=== PATIENT | male | born 1985 | race Caucasian/White ===

== ENCOUNTER 2016-09-07 23:14 | Emergency (ER) | payer OTHER ==
[~2016-09-07] VITALS: Ht 167.6 cm; Wt 83.9 kg
[~2016-09-07 23:14] MED LIST: INDOMETHACIN50 MG PO; PERCOCET 325 MG1 TA2 PO; PREDNISONE50 MG PO
[2016-09-07 23:38] VITALS: BP 142/88
--- NOTE | 2016-09-07 23:50 | ED THROAT/DENTAL COMPLAINT ---
History of Present Illness General Chief Complaint: Allergy Symptoms Stated Complaint: "PER PT ALLERGIC REACTION" Source: patient Exam Limitations: no limitations Vital Signs & Intake/Output Vital Signs & Intake/Output Vital Signs Date Time Temp Pulse Resp B/P B/P Pulse O2 O2 Flow FiO2 Mean Ox Delivery Rate 09/07 2338 142/88 09/07 2335 98.9 89 18 174/104 97 Room Air ED Intake and Output 09/08 0000 09/07 1200 Intake Total Output Total Balance Patient 185 lb Weight Weight Reported by Patient Measurement Method Allergies Coded Allergies: NO KNOWN ALLERGIES (04/03/15) Reconcile Medications Amoxicillin 875 MG TABLET 1 TAB PO BID pharyngitis Prednisone (Deltasone) 20 MG TABLET 1 TAB PO TID sore throat Prednisone 50 MG TAB 1 TAB PO QDAY GOUT Triage Note: TRIAGE: PATIENT TO ER FROM HOME REPORTS X 1 HOUR "BETH ZALDIVAR FEELS DROPPED AND LIKE IT'S TOUCHING MY TONGUE. I THINK MY THROAT IS GOING TO CLOSE UP OR SOMETHING." PATIENT DENIES ANY KNOWN ALLERGIES, DENIES ANY NEW EXPOSURES, SPEECH CLEAR, UVULA SWOLLEN THOUGH PATIENT IN NO ACUTE RESP DISTRESS. DENIES ANY RASH. PATIENT REPORTS "I THINK IT'S MY SEASONAL ALLERGIES, I WAS GOLFING ALL DAY. I TOOK A CLARATIN EARLIER." Triage Nurses Notes Reviewed? yes Onset: Abrupt Duration: day(s):, constant, continues in ED Timing: recent history No Modifying Factors: none HPI: 31-year-old male comes into emergency room for further evaluation of swelling to his back of his throat and pain in his throat. Since is been going on for a few hours. Denies any vomiting. Denies any fever or chills. Denies any cough. Nothing seems to make the symptoms better or worse. Denies any other associated symptoms. (VIKKI GEORGE) Past History Travel History Traveled to [place] past 21 day No Medical History Any Pertinent Medical History? see below for history Neurological: NONE EENT: allergies Cardiovascular: NONE Respiratory: NONE Gastrointestinal: GERD Hepatic: NONE Renal: NONE Musculoskeletal: NONE Psychiatric: NONE Endocrine: NONE Blood Disorders: NONE Cancer(s): NONE CERTIFIED NURSE OPERATING ROOM/Reproductive: NONE Surgical History Surgical History: N Psychosocial History What is your primary language Korean Tobacco Use: Refused to answer Family History Hx Contributory? No (VIKKI GEORGE) Review of Systems Review of Systems Constitutional: Reports: no symptoms. EENTM: Reports: see HPI. Respiratory: Reports: no symptoms. Cardiovascular: Reports: no symptoms. GI: Reports: no symptoms. Genitourinary: Reports: no symptoms. Musculoskeletal: Reports: no symptoms. Skin: Reports: no symptoms. Neurological/Psychological: Reports: no symptoms. Hematologic/Endocrine: Reports: no symptoms. Immunologic/Allergic: Reports: no symptoms. All Other Systems: Reviewed and Negative (VIKKI GEORGE) Physical Exam Physical Exam General Appearance: well developed/nourished, no apparent distress, alert Head: atraumatic, normal appearance Eyes: Bilateral: normal appearance. Nose: normal inspection Mouth/Throat: uvula swelling, mild pharyngeal erythema, no tongue swelling Neck: normal inspection, lymphadenopathy (R), lymphadenopathy (L) Cardiovascular/Respiratory: regular rate/rhythm, no respiratory distress Back: normal inspection Neurologic/Psych: awake, alert, oriented x 3, normal gait Skin: intact, normal color Core Measures ACS in differential dx? No Severe Sepsis Present: No Septic Shock Present: No (VIKKI GEORGE) Progress Differential Diagnosis: aspirated tooth, carious tooth, epiglottitis, Ludwigs angina, meningitis, odontogenic abscess, vincent-tonsillar abscess, pharyngeal for. body, stomatitis/gingivitis, strep pharyngitis, tooth fracture, allergic reaction Plan of Care: Orders Procedure Date/time Status THROAT CULTURE W/QUICK STREP 09/07 9436 Active Comments: Patient clinically looks well. Nontoxic-appearing. No evidence of airway compromise. Viral pharyngitis likely. Patient given a dose of prednisone. Symptoms improved. No stridor. Follow-up with primary care doctor. Return if any other concerns. Patient understands and agrees with plan of care. (VIKKI GEORGE) Departure Departure Disposition: HOME OR SELF CARE Condition: Stable Clinical Impression Primary Impression: Pharyngitis Referrals: LANG LUKE,WENDY Mills (PCP/Family) Additional Instructions: Take prednisone and amoxicillin as prescribed. Follow-up with your primary care doctor. Return if any concerns worsening symptoms. Please go over all results of today's visit with your primary care doctor. Contact your primary care doctor to let them know you were here in the emergency room. There may be nonspecific findings which may not be related to your visit today here in the emergency room but may require further evaluation and chronic monitoring by your primary care doctor. If you had a laceration today the chance of foreign body always remains. You should follow-up with your primary care doctor for recheck in 3-5 days for a wound check. If you had an x-ray done there is a chance that a fracture could have been missed on initial read and you should follow-up with your primary care doctor for repeat x-rays if symptoms persist. If your blood pressure was elevated here in the emergency room please have rechecked by her primary care doctor within the next 48 hours by your primary care doctor. If you were prescribed a narcotic here in the emergency room or any type of controlled substances you're not allowed to drive while taking this medication or operate any type of heavy machinery. Narcotics can make you feel lightheaded dizziness nausea and can cause constipation. You may need to meat pickler a stool softener. Thank you for choosing [facility] emergency room. Please return to the emergency room immediately if you have any other concerns worsening of symptoms. Departure Forms: Customer Survey General Discharge Information Prescriptions: Current Visit Scripts Amoxicillin 1 TAB PO BID #20 TAB Prednisone (Deltasone) 1 TAB PO TID #12 MG (VIKKI GEORGE) PA/AUTOMATIC TELLER MACHINE SERVICER Co-Sign Statement Statement: ED Attending supervision documentation- [] I saw and evaluated the patient. I have also reviewed all the pertinent lab results and diagnostic results. I agree with the findings and the plan of care as documented in the PA's/AUTOMATIC TELLER MACHINE SERVICER's documentation. [x] I have reviewed the ED Record and agree with the PA's/AUTOMATIC TELLER MACHINE SERVICER's documentation. [] Additions or exceptions (if any) to the PAs/AUTOMATIC TELLER MACHINE SERVICER's note and plan are summarized below: [] (TRUE LUKE,NAYANA Miranda)
[2016-09-08] MEDS ORDERED: AMOXICILLIN875 M1 PO (00:43)
[2016-09-08] MEDS ORDERED: DELTASONE20 MG PO (00:43)
== END 2016-09-08 00:55 ==
LOC: ERH 23:14
DX: J02.9 Acute pharyngitis, unspecified (principal)